=== PATIENT | female | born 1945 | race Caucasian/White ===

== ENCOUNTER → 2016-10-20 | Outpatient (REF) | payer BC, MEDICARE ==
[2016-10-20 14:28] LABS: FOLATE > 24.0 NG/ML (>5.4); VITAMIN B12 LEVEL 753 PG/ML (247-911)
[2016-10-24 00:08] LABS: ACETYLCHOLINE RCPTOR BINDING A < 0.03 nmol/L (0.00-0.24); STRIATIONAL ANTIBODIES Negative (Neg:<1:40)
== END ==
LOC: M LABNEURO 10:53
PROVIDERS: ATTEND Psychiatry & Neurology Neurology
DX: H53.2 Diplopia (principal); R53.1 Weakness; Z13.29 Encounter for screening for other suspected endocrine disorder

== ENCOUNTER → 2018-06-14 | Outpatient (CLI) | payer MEDICARE | LOC: M PLARAD 09:23 | DX: R91.1 Solitary pulmonary nodule (principal) | CPT/HCPCS: 78815 ==

== ENCOUNTER → 2018-06-14 | Outpatient (REF) | payer MEDICARE ==
[2018-06-14 14:15] LABS: GLOMERULAR FILTRATION RATE 57.9 (>39)
[2018-06-14 14:15] LABS: BLOOD UREA NITROGEN 22 MG/DL (7-18)
== END ==
LOC: M LABDRAW1 13:20
DX: R91.1 Solitary pulmonary nodule (principal)

== ENCOUNTER → 2018-06-20 | Outpatient (CLI) | payer MEDICARE ==
[~2018-06-20] MED LIST: ISOVUE-370 76% 100ML VIAL (Q9967) As Ordered
== END ==
LOC: M RAD 08:19
DX: R91.1 Solitary pulmonary nodule (principal)
CPT/HCPCS: Q9967

== ENCOUNTER → 2018-12-22 | Outpatient (CLI) | payer MEDICARE ==
--- NOTE | 2018-12-22 10:54 | REP ---
Chest CT without contrast: History: Solitary pulmonary nodule. Comparison chest CT studies are reviewed from June 20, 2018 and October 29, 2017. Comparison PET-CT June 14, 2018. Findings: There is an eccentrically calcified pulmonary nodule in the right middle lobe again seen on pages 64 and 65 of 119 in series 201 of today's study. This is entirely unchanged from the October 29, 2017 prior study. No new pulmonary nodule is appreciated. Lung matute are otherwise clear. No hilar or mediastinal mass or adenopathy is observed. There is some vascular calcification. No pleural or pericardial effusion is seen. Gallbladder is surgically absent. No adrenal abnormality is observed. The visualized upper abdominal structures are otherwise unremarkable. Impression: Stable right middle lobe nodule containing an eccentric pattern of calcification. Unchanged times one year. Consider follow-up CT study in 1 year. Electronically Signed by Sudhakar Harrell MD 12/22/2018 11:13 A
== END ==
LOC: M RAD 08:58
PROVIDERS: ATTEND Thoracic Surgery (Cardiothoracic Vascular Surgery)
DX: R91.1 Solitary pulmonary nodule (principal); F17.218 Nicotine dependence, cigarettes, with other nicotine-induced disorders

== ENCOUNTER → 2020-01-15 | Outpatient (CLI) | payer MEDICARE ==
--- NOTE | 2020-01-15 16:54 | REP ---
CT CHEST WITHOUT IV CONTRAST: CT chest performed without IV contrast and compared to prior studies 12/22/2018, 06/20/2018, and 10/29/2017. Once again, there is a 7 mm partially calcified nodule in the right middle lobe measuring 7 mm in diameter. This has remained stable for over 2 years and is benign. No new nodule is seen in either lung. There is no infiltrate. Heart is normal in size. There is no mediastinal or axillary adenopathy. There is mild atherosclerotic calcification of the thoracic aorta, no aneurysm. There is no pleural or pericardial effusion. There is a small hiatal hernia. There is evidence of prior cholecystectomy. There are degenerative changes of the spine. IMPRESSION: Stable partially calcified 7 mm nodule right middle lobe. This has remained stable for over 2 years and is benign. No new suspicious abnormality. No further followup is needed. Electronically Signed by Dominic Figueroa MD 01/15/2020 07:35 P
== END ==
LOC: M RAD 14:26
PROVIDERS: ATTEND Internal Medicine Pulmonary Disease
DX: R91.1 Solitary pulmonary nodule (principal)